=== PATIENT | female | born 2000 ===

== ENCOUNTER 2023-03-25 00:55 | Day surgery (SDC) | payer OTHER ==
[2023-03-25 14:15] VITALS: BP 138/81
[2023-03-25] MEDS ORDERED: Cyclobenzaprine10 MG PO (15:21)
[2023-03-25] MEDS ORDERED: LEVSOD75 PO (15:22)
[2023-03-25] MEDS ORDERED: NEXPLANON68 MG SQ (15:22)
== END 2023-03-25 15:20 | disposition home or self-care (01) ==
LOC: ATC 00:55
DX: D50.9 Iron deficiency anemia, unspecified (principal); Z91.048 Other nonmedicinal substance allergy status; E03.9 Hypothyroidism, unspecified; F90.9 Attention-deficit hyperactivity disorder, unspecified type; F33.3 Major depressive disorder, recurrent, severe with psychotic symptoms; E66.01 Morbid (severe) obesity due to excess calories; Z68.41 Body mass index [BMI] 40.0-44.9, adult; F43.12 Post-traumatic stress disorder, chronic; F41.8 Other specified anxiety disorders; G56.03 Carpal tunnel syndrome, bilateral upper limbs
CPT/HCPCS: 96365; J2916

== ENCOUNTER 2023-04-01 00:10 | Day surgery (SDC) | payer OTHER ==
[~2023-04-01 00:10] MED LIST: Cyclobenzaprine10 MG PO; LEVSOD75 PO; NEXPLANON68 MG SQ
[2023-04-01 14:07] VITALS: BP 144/78
== END 2023-04-01 15:15 | disposition home or self-care (01) ==
LOC: ATC 00:10
DX: D50.9 Iron deficiency anemia, unspecified (principal)
CPT/HCPCS: J2916

== ENCOUNTER 2023-04-08 03:36 | Day surgery (SDC) | payer OTHER ==
[2023-04-08 14:18] VITALS: BP 126/74
== END 2023-04-08 16:09 | disposition home or self-care (01) ==
LOC: ATC 03:36
DX: D50.9 Iron deficiency anemia, unspecified (principal); Z91.048 Other nonmedicinal substance allergy status; F90.9 Attention-deficit hyperactivity disorder, unspecified type; E66.9 Obesity, unspecified; Z68.41 Body mass index [BMI] 40.0-44.9, adult; E03.9 Hypothyroidism, unspecified; F43.12 Post-traumatic stress disorder, chronic; F41.8 Other specified anxiety disorders
CPT/HCPCS: J2916

== ENCOUNTER 2023-04-15 03:14 | Day surgery (SDC) | payer OTHER ==
[2023-04-15 14:10] VITALS: BP 135/79
[2023-04-15] MEDS ORDERED: PALI6TA PO (14:16)
== END 2023-04-15 15:16 | disposition home or self-care (01) ==
LOC: ATC 03:14
DX: D50.9 Iron deficiency anemia, unspecified (principal); Z91.048 Other nonmedicinal substance allergy status
CPT/HCPCS: 96365; J2916